=== PATIENT | female | born 1985 | race Hispanic/Latino ===

== ENCOUNTER 2023-07-30 17:07 | Emergency (ER) | payer OTHER ==
[~2023-07-30] VITALS: Ht 167.6 cm; Wt 139.7 kg
[2023-07-30 17:31] LABS: BASOPHILS # (AUTO) 0.05 K/uL (0.00-0.20); BASOPHILS % (AUTO) 0.6 % (0.0-5.0); EOSINOPHILS # (AUTO) 0.41 K/uL (0.00-0.70); EOSINOPHILS % (AUTO) 5.3 % (0.0-8.0); HEMATOCRIT 33.1 % (36-48); IMMATURE GRANULOCYTE ABSOLUTE 0.06 K/uL (0-1); LYMPHOCYTES # (AUTO) 1.2 K/uL (1.0-4.8); LYMPHOCYTES % (AUTO) 15.2 % (21.0-51.0); MEAN CORPUSCULAR HEMOGLOBIN 31.1 pg (27.0-33.0); MEAN CORPUSCULAR HGB CONC 31.1 g/dL (32.0-36.0); MONOCYTES # (AUTO) 0.5 K/uL (0.1-1.0); MONOCYTES % (AUTO) 5.9 % (3.0-13.0); NEUTROPHILS # (AUTO) 5.6 K/uL (1.8-7.7); NEUTROPHILS % (AUTO) 72.2 % (40.0-77.0); PLATELET COUNT (AUTO) 215 K/uL (130-400); RED BLOOD CELL COUNT(AUTO) 3.31 MIL/uL (4.00-5.50); RED CELL DISTRIBUTION WIDTH 14.8 % (11.0-15.5); WHITE BLOOD COUNT (AUTO) 7.8 K/uL (4.8-10.8)
[2023-07-30 17:44] LABS: CREATININE 6.2 mg/dL (0.5-1.5); POTASSIUM 4.6 mmol/L (3.5-5.1)
[2023-07-30 17:50] LABS: ALBUMIN 3.6 g/dL (3.5-5.0); BILIRUBIN,TOTAL 0.4 mg/dL (0.2-1.0); TOTAL PROTEIN, SERUM 7.4 g/dL (6.0-8.3)
[2023-07-30] MEDS ORDERED: KETOROLAC 60 MG VIAL (30MG/ML) IM ONE (20:30)
[2023-07-30] MEDS ORDERED: IBUP-1493 PO (21:53)
[2023-07-30 22:36] VITALS: BP 169/92; PULSE 94; RESP 18; O2SAT 97
[2023-07-31] MEDS ORDERED: LOSA100T59 PO (23:53)
[2023-07-31] MEDS ORDERED: LABE100T7 PO (23:53)
== END 2023-07-30 22:56 | disposition home or self-care (01) ==
LOC: EDH 17:07
DX: M94.0 Chondrocostal junction syndrome [Tietze] (principal); I12.0 Hypertensive chronic kidney disease with stage 5 chronic kidney disease or end stage renal disease; N18.9 Chronic kidney disease, unspecified; Z90.49 Acquired absence of other specified parts of digestive tract
CPT/HCPCS: 99285; 71045; 84484 ×2; 80053; 85025; 36415; 96372; 93005; J1885

== ENCOUNTER 2023-07-31 15:52 | Inpatient (IN) | payer OTHER ==
[~2023-07-31] VITALS: Ht 167.6 cm; Wt 138.7 kg
[~2023-07-31 15:52] MED LIST: IBUP-1493 PO
[2023-07-31 19:15] LABS: BASOPHILS # (AUTO) 0.06 K/uL (0.00-0.20); BASOPHILS % (AUTO) 0.9 % (0.0-5.0); EOSINOPHILS # (AUTO) 0.31 K/uL (0.00-0.70); EOSINOPHILS % (AUTO) 4.5 % (0.0-8.0); HEMATOCRIT 33.1 % (36-48); IMMATURE GRANULOCYTE ABSOLUTE 0.08 K/uL (0-1); LYMPHOCYTES # (AUTO) 1.5 K/uL (1.0-4.8); LYMPHOCYTES % (AUTO) 22.3 % (21.0-51.0); MEAN CORPUSCULAR HEMOGLOBIN 31.3 pg (27.0-33.0); MEAN CORPUSCULAR VOLUME 97.6 fL (79-99); MONOCYTES # (AUTO) 0.6 K/uL (0.1-1.0); MONOCYTES % (AUTO) 8.5 % (3.0-13.0); NEUTROPHILS # (AUTO) 4.3 K/uL (1.8-7.7); NEUTROPHILS % (AUTO) 62.6 % (40.0-77.0); PLATELET COUNT (AUTO) 214 K/uL (130-400); RED BLOOD CELL COUNT(AUTO) 3.39 MIL/uL (4.00-5.50); RED CELL DISTRIBUTION WIDTH 14.6 % (11.0-15.5); WHITE BLOOD COUNT (AUTO) 6.8 K/uL (4.8-10.8)
[2023-07-31 19:19] LABS: CREATININE 4.4 mg/dL (0.5-1.5); POTASSIUM 3.9 mmol/L (3.5-5.1)
[2023-07-31 19:28] LABS: ALBUMIN 3.6 g/dL (3.5-5.0); BILIRUBIN,TOTAL 0.4 mg/dL (0.2-1.0); TOTAL PROTEIN, SERUM 7.6 g/dL (6.0-8.3)
[2023-07-31] MEDS ORDERED: ASPIRIN 81 MG EC TAB PO ONE (19:30)
[2023-07-31 19:45] LABS: INR < 0.93 (0.85-1.15); PROTHROMBIN TIME 10.4 SEC (9.6-11.6)
[2023-07-31 19:46] LABS: PARTIAL THROMBOPLASTIN TIME 27.4 SEC (26.3-35.5)
[2023-07-31 20:06] LABS: B-TYPE NATRIURETIC PEPTIDE 49 pg/mL (0-100)
[2023-07-31] MEDS ORDERED: NITROGLYCERIN 1GM OINT 1 INCH/1GM TD ONE (21:00)
[2023-07-31] MEDS ORDERED: ONDANSETRON 4MG TABLET PO PRN (23:30)
[2023-07-31] MEDS ORDERED: ACETAMINOPHEN 325 MG TAB PO PRN (23:30)
[2023-07-31] MEDS ORDERED: LABE100T7 PO (23:53)
[2023-07-31] MEDS ORDERED: LOSA100T59 PO (23:53)
[2023-08-01] VITALS (9 sets, daily range): BP systolic 137–174; BP diastolic 67–106; PULSE 73–88; RESP 18–22; O2SAT 93–96
[2023-08-01] MEDS ORDERED: MORPHINE 2 MG SYG IVP PRN
[2023-08-01] MEDS ORDERED: IOHEXOL-350 75 ML VIAL IV ONE (01:13)
[2023-08-01] MEDS ORDERED: HEPARIN 5,000 UNIT VIAL IV ONE (03:00)
[2023-08-01] MEDS: HEPARIN 25,000 UNITS/250ML D5W 250 ML IV SCH ×2 (03:06→14:45)
[2023-08-01] MEDS: INSULIN HUMULIN R 100 UNIT/ML 3ML SQ SCH ×5 (06:15→20:26)
[2023-08-01 07:25] LABS: BASOPHILS # (AUTO) 0.04 K/uL (0.00-0.20); BASOPHILS % (AUTO) 0.6 % (0.0-5.0); EOSINOPHILS % (AUTO) 4.3 % (0.0-8.0); HEMATOCRIT 31.9 % (36-48); IMMATURE GRANULOCYTE ABSOLUTE 0.08 K/uL (0-1); LYMPHOCYTES % (AUTO) 28.6 % (21.0-51.0); MONOCYTES # (AUTO) 0.5 K/uL (0.1-1.0); MONOCYTES % (AUTO) 6.9 % (3.0-13.0); NEUTROPHILS # (AUTO) 4.1 K/uL (1.8-7.7); NEUTROPHILS % (AUTO) 58.5 % (40.0-77.0); PLATELET COUNT (AUTO) 190 K/uL (130-400); RED BLOOD CELL COUNT(AUTO) 3.19 MIL/uL (4.00-5.50); RED CELL DISTRIBUTION WIDTH 14.7 % (11.0-15.5)
[2023-08-01 07:53] LABS: CREATININE 5.2 mg/dL (0.5-1.5); MAGNESIUM 2.3 mg/dL (1.80-2.40); POTASSIUM 4.5 mmol/L (3.5-5.1)
[2023-08-01 08:13] LABS: HEMOGLOBIN A1C 6.1 % (4.0-6.0)
[2023-08-01 09:48] LABS: INR 0.95 (0.85-1.15); PROTHROMBIN TIME 11.1 SEC (9.6-11.6)
[2023-08-01 09:49] LABS: PARTIAL THROMBOPLASTIN TIME 75.4 SEC (26.3-35.5)
[2023-08-01] MEDS ORDERED: CLONIDINE HCL 0.1 MG TABLET PO PRN (13:30)
[2023-08-01 13:47] LABS: ABG BASE EXCESS 0.8 mmol/L (-2.0-3.0); ABG HCO3 26.2 mmol/L (21.0-28.0); ABG OXYGEN SATURATION 89.6 % (95.0-99.0); ABG PCO2 45 mmHg (32-45); CARBON MONOXIDE 0.6; HHb 10.3; PO2, ARTERIAL BG 59.4 mmHg (83.0-108.0); VENT MODE, BG RA (ROOM AIR)
[2023-08-01 14:53] LABS: % IRON SATURATION 17.3 % (22-44)
[2023-08-01] MEDS: LABETALOL HCL 100 MG TABLET PO SCH (20:14)
[2023-08-02] VITALS (24 sets, daily range): BP systolic 124–174; BP diastolic 69–119; PULSE 69–115; RESP 18–20; TEMP 98.5–98.8; O2SAT 92–100
[2023-08-02] MEDS: HEPARIN 25,000 UNITS/250ML D5W 250 ML IV SCH ×2 (05:41→17:38)
[2023-08-02] MEDS: INSULIN HUMULIN R 100 UNIT/ML 3ML SQ SCH ×4 (05:41→20:05)
[2023-08-02 05:53] LABS: SARS-CoV-2, RNA, NAAT NEGATIVE SARS CoV-2 (NEGATIVE)
[2023-08-02] MEDS: CYANOCOBALAMIN (VITAMIN B-12) 1,000 MCG TABLET PO SCH (09:35)
[2023-08-02] MEDS: LABETALOL HCL 100 MG TABLET PO SCH ×2 (09:35→20:42)
[2023-08-02] MEDS: LOSARTAN 100 MG TABLET PO SCH (09:35)
[2023-08-02] MEDS: FOLIC ACID 1 MG TABLET PO SCH (09:35)
[2023-08-02] MEDS: APIXABAN 5 MG TABLET PO SCH (20:43)
[2023-08-02] MEDS ORDERED: MORPHINE 2 MG SYG IVP PRN (21:00)
[2023-08-02] MEDS ORDERED: FAMOTIDINE 20MG TAB PO SCH (21:00)
[2023-08-03 04:02] VITALS: BP 112/74; PULSE 92; RESP 18
[2023-08-03 04:35] LABS: HEPATITIS B SURFACE ANTIGEN Non-Reactive (Nonreactive)
[2023-08-03 04:57] LABS: HEMATOCRIT 30.4 % (36-48); MEAN CORPUSCULAR HEMOGLOBIN 30.5 pg (27.0-33.0); MEAN CORPUSCULAR HGB CONC 31.3 g/dL (32.0-36.0); MEAN CORPUSCULAR VOLUME 97.7 fL (79-99); RED BLOOD CELL COUNT(AUTO) 3.11 MIL/uL (4.00-5.50); RED CELL DISTRIBUTION WIDTH 14.5 % (11.0-15.5); WHITE BLOOD COUNT (AUTO) 8.6 K/uL (4.8-10.8)
[2023-08-03 05:24] LABS: CREATININE 4.8 mg/dL (0.5-1.5); POTASSIUM 3.8 mmol/L (3.5-5.1)
[2023-08-03] MEDS: INSULIN HUMULIN R 100 UNIT/ML 3ML SQ SCH ×2 (05:58→11:30)
[2023-08-03 06:24] VITALS: BP 128/61; PULSE 90; RESP 18
[2023-08-03 09:00] VITALS: O2SAT 96
[2023-08-03] MEDS ORDERED: APIXABAN 5 MG TABLET PO SCH (09:00)
[2023-08-03] MEDS: APIXABAN 5 MG TABLET PO SCH (09:10)
[2023-08-03] MEDS: LABETALOL HCL 100 MG TABLET PO SCH (09:10)
[2023-08-03] MEDS: CYANOCOBALAMIN (VITAMIN B-12) 1,000 MCG TABLET PO SCH (09:10)
[2023-08-03] MEDS: FOLIC ACID 1 MG TABLET PO SCH (09:10)
[2023-08-03] MEDS: LOSARTAN 100 MG TABLET PO SCH (09:12)
[2023-08-03 11:30] VITALS: BP 106/78; PULSE 86; RESP 16
[2023-08-03] MEDS ORDERED: APIX2.5T PO (15:16)
[2023-08-06 08:14] LABS: AMPHETAMINES SERUM Negative ng/mL (Cutoff:50); COCAINE+METABOLITES SERUM Negative ng/mL (Cutoff:25)
[2023-08-10 19:09] LABS: DRVVT-LUPUS ANTICOAGULANT 53.1 sec (0.0-47.0)
== END 2023-08-03 16:33 | disposition home or self-care (01) | DRG 175 ==
LOC: EDH 15:52 → EDHIP 15:53 → 2AH 08-01 04:11
PROVIDERS: ADMIT Internal Medicine Infectious Disease; ATTEND Internal Medicine Infectious Disease
PROC: 5A1D70Z Performance of Urinary Filtration, Intermittent, Less than 6 Hours Per Day (ICD-10-PCS; principal; 2023-08-02)
DX: I26.99 Other pulmonary embolism without acute cor pulmonale (principal); J96.01 Acute respiratory failure with hypoxia; N18.6 End stage renal disease; D68.59 Other primary thrombophilia; Z20.822 Contact with and (suspected) exposure to COVID-19; I12.0 Hypertensive chronic kidney disease with stage 5 chronic kidney disease or end stage renal disease; Z68.42 Body mass index [BMI] 45.0-49.9, adult; I16.1 Hypertensive emergency; E66.01 Morbid (severe) obesity due to excess calories; D63.1 Anemia in chronic kidney disease; E11.22 Type 2 diabetes mellitus with diabetic chronic kidney disease; G47.33 Obstructive sleep apnea (adult) (pediatric); K76.0 Fatty (change of) liver, not elsewhere classified; Z99.2 Dependence on renal dialysis; Z86.718 Personal history of other venous thrombosis and embolism
CPT/HCPCS: 36415; 36600; 71045; 71270; 80048; 80053; 80305; 82435; 82550; 82803; 82947; 82948; 83036; 83540; 83550; 83605; 83735; 83880; 84100; 84132; 84295; 84484; 84703; 85018; 85025; 85027; 85378; 85610; 85651; 85730; 85732; 86038; 86147; 86160; 86215; 86235; 86704; 86706; 87340; 87635; 90935; 93005; 93306; 93356; 93970; 94760; G0378; J1644; J1815; Q9967